=== PATIENT | male | born 1975 | race Caucasian/White ===

== ENCOUNTER → 2021-10-19 11:40 | Outpatient (CLI) | payer OTHER, SELFPAY ==
--- NOTE | ~2021-10-19 | XR_ITS ---
EXAMINATION: XR shoulder RT min 2V INDICATION: Right shoulder pain TECHNIQUE: Four views of the right shoulder are submitted. COMPARISON: None FINDINGS: Normal alignment. No fracture. Glenohumeral and acromioclavicular joint spaces are normal. Soft tissues are unremarkable. IMPRESSION: 1. No acute osseous abnormality. Reviewed, dictated and finalized at location B.
== END ==
PROVIDERS: PCP Chiropractor; Visit Provider Chiropractor
DX: M25.511 Pain in right shoulder (principal)
CPT/HCPCS: 73030

== ENCOUNTER → 2021-11-08 15:39 | Outpatient (CLI) | payer OTHER, SELFPAY ==
--- NOTE | ~2021-11-08 | MR_ITS ---
EXAMINATION: MR shoulder RT wo con DATE: 11/08/2021 16:21 INDICATION: Right shoulder pain TECHNIQUE: Magnetic resonance imaging (MRI) of the right shoulder was performed without intravenous c ontrast. Sequences included axial PD-weighted FS FSE, coronal oblique PD-weighted FS FSE, coronal obl ique T2-weighted FS FSE, sagittal PD-weighted FS FSE, and sagittal T1-weighted SE. COMPARISON: None. FINDINGS: Coracoacromial arch: The acromion undersurface is curved in morphology (type II). The coracoacromial ligament is normal. M ild acromioclavicular osteoarthritis. Rotator cuff: Minimal supraspinatus and infraspinatus tendinopathy without tear. The teres minor and subscapularis tendons are normal. Normal rotator cuff muscle bulk and signal. Biceps tendon, glenoid labrum and glenohumeral cartilage: Long head of the biceps tendon is normal. There is a small tear at the 11:30-12:30 position of the brewer perior glenoid labrum. The inferior labrum is diminutive. Mild partial-thickness cartilage loss at th e glenoid and along the inferomedial aspect of the humeral head. Fluid: Physiologic amount of fluid in the glenohumeral joint and biceps tendon sheath. No loose osteochondr al bodies. Small amount of fluid in the subacromial/subdeltoid bursa consistent with mild bursitis. Bones: Subarticular mild marrow edema at the lateral head of the clavicle surrounding a curved low signal brewer bcortical line at the clavicular side of the acromioclavicular joint which could represent subarticul ar impaction fracture or dislocation clavicular osteolysis. Bone marrow signal is otherwise normal. IMPRESSION: 1. Marrow edema at the lateral head of the clavicle which could be due to distal clavicular osteolysi s related to repetitive or microtrauma or a nondisplaced subarticular fracture related to a more disc rete injury. 2. Mild glenohumeral osteoarthritis with small SLAP tear at the superior glenoid labrum. 3. Minimal supraspinatus and infraspinatus tendinopathy without discrete tear. Reviewed, dictated and finalized at location A. IMPRESSION: 1. Marrow edema at the lateral head of the clavicle which could be due to dista l clavicular osteolysis related to repetitive or microtrauma or a nondisplaced subarticular fracture related to a more discrete injury. 2. Mild glenohumeral osteoarthritis with small SLAP tear at the superior glenoi d labrum. 3. Minimal supraspinatus and infraspinatus tendinopathy without discrete tear.
== END ==
PROVIDERS: PCP Physician Assistant; Visit Provider Chiropractor
DX: M25.511 Pain in right shoulder (principal); M79.89 Other specified soft tissue disorders; M19.011 Primary osteoarthritis, right shoulder; M75.81 Other shoulder lesions, right shoulder
CPT/HCPCS: 73221

== ENCOUNTER 2023-07-14 12:11 | Emergency (ER) | payer OTHER, SELFPAY ==
--- NOTE | ~2023-07-14 | XR_ITS ---
XR chest 2V DATE: 07/14/2023 12:42 INDICATION: Cough for 3 weeks TECHNIQUE: 2 views COMPARISON: None FINDINGS: Normal heart size. No hilar or mediastinal enlargement. No pulmonary infiltrate or consolid ation, pleural effusion or pulmonary vascular congestion or pneumothorax. IMPRESSION: No active cardiopulmonary disease Reviewed, dictated and finalized at location B.
[2023-07-14 12:20] VITALS: BP 123/61; PULSE 72; RESP 18; TEMP 36.8; O2SAT 98
--- NOTE | 2023-07-14 12:36 | ED.URI ---
HPI - URI/Sore Throat General Chief Complaint: Upper Respiratory Infection Stated Complaint: respiratory infection Source: patient Mode of arrival: ambulatory Limitations: no limitations History of Present Illness HPI Narrative: 48 y/o male with hx asthma presented for c/o cough x3 weeks. Endorses wheezing, chest tightness, and sob. States albuterol neb does not help, and his prn inhaler has been no help for a long time. Denies cp, palpitations, n/v/d/f/c. Not taking anything otc for symptoms. Scheduled with pcp in about 5 weeks. Related Data Home Medications Medication Instructions Recorded Confirmed albuterol sulfate 2.5 mg/3 mL mg 07/14/23 (0.083 %) solution for nebulization albuterol sulfate 90 mcg/actuation inhalation 07/14/23 aerosol inhaler Allergies Allergy/AdvReac Type Severity Reaction Status Date / Time No Known Allergies Allergy Verified 07/14/23 12:27 Review of Systems Review of Systems: CONSTITUTIONAL: Denies body aches, fever, chills, or sweats. EYES: Denies visual changes, redness, or discharge. ENT: Denies rhinorrhea, congestion, sore throat, or otalgia. CARDIOVASCULAR: Denies chest pain, palpitations, or edema. RESPIRATORY: Reports cough, sob, wheezing. GASTROINTESTINAL: Denies abdominal pain, nausea, vomiting, or diarrhea. SKIN: Denies rash, itching, or wounds. MUSCULOSKELETAL: Denies back pain, joint pain, or myalgia. NEUROLOGIC: Denies headache All systems reviewed & are unremarkable except as noted in HPI and below PMFSH Comments At time of signature, I have reviewed and agree with nursing past medical, surgical, social and family history unless otherwise noted. Please see nursing chart for further information. There is no relevant family history pertinent to the presenting complaint Exam Narrative: GENERAL: Well-appearing, in no acute distress. EYES: EOMI. No redness or drainage. Conjunctivae normal. ENT: Mucous membranes pink and moist. No rhinorrhea. TMs normal bilaterally. Throat normal. Uvula midline. NECK: Normal AROM. Supple. CHEST: No respiratory distress. Exp Wheezing to all seals. Occasional and be cough noted. Speaks in full sentences, 98% Ra. HEART: Regular rate and rhythm. No murmur appreciated. ABDOMEN: Soft, nontender, nondistended, normal active bowel sounds. EXTREMITIES: Normal range of motion. No edema. SKIN: Warm, dry, no rash. Capillary refill normal. Normal skin turgor. NEURO: Alert and oriented x3. Gait steady. PSYCH: Normal affect. Course Course Emergency Course: Patient is aware of diagnosis, understands and agrees to treatment plan. Anticipatory guidance given. Patient agrees to follow-up as directed and is aware of reasons to seek care at the emergency department. Portions of this record may have been created with voice recognition software Level of Care: Express Care Visit Vital Signs Vital signs: Vital Signs Temperature 98.3 F 07/14/23 12:20 Pulse Rate 72 07/14/23 12:20 Respiratory Rate 18 07/14/23 12:20 Blood Pressure 123/61 07/14/23 12:20 Pulse Oximetry 98 07/14/23 12:20 Oxygen Delivery Room Air 07/14/23 12:20 Temperature 98.3 F 07/14/23 12:20 Pulse Rate 72 07/14/23 12:20 Respiratory Rate 18 07/14/23 12:20 Blood Pressure 123/61 07/14/23 12:20 Pulse Oximetry 98 07/14/23 12:20 Oxygen Delivery Room Air 07/14/23 12:20 MDM - URI/Sore Throat MDM Narrative Medical decision making narrative: Results of chest x-ray reviewed with patient. Reassessed after DuoNeb treatment. Reported improvement in breathing, feels like lungs aren't as tight. Less wheezing on auscultation, mucous/coarse sounds noted. Discussed physical exam findings. Reviewed Rx. Declined tessalon. Advised supportive measures and signs/symptoms to go to the ER. Pt is appropriate for outpt treatment and f/u. Differential Diagnosis Differential diagnosis: Likely upper respiratory infection, viral infect
[2023-07-14] MEDS: ALBUTEROL SULFATE NEB 2.5 MG/3 ML INH INHALATION (12:46)
[2023-07-14] MEDS: IPRATROPIUM BR 0.02% INH SOLN 0.5 MG/2.5 ML VIAL INHALATION (12:46)
== END 2023-07-14 13:20 | disposition home or self-care (01) ==
PROVIDERS: Emergency Provider Nurse Practitioner Family; PCP Physician Assistant
DX: J40 Bronchitis, not specified as acute or chronic (principal); J45.909 Unspecified asthma, uncomplicated
CPT/HCPCS: 71046; 94640; 99213; G0463